=== PATIENT | male | born 1960 | race Hispanic/Latino ===

== ENCOUNTER 2021-02-02 14:33 | Emergency (ER) | payer BC ==
[~2021-02-02 14:33] MED LIST: Iopamidol-370 76% 500 ML 1 ML ONE
[2021-02-02 15:39] LABS: #Lymphocytes 1.2 thou/uL (1.20-3.40); #Monocytes 1.3 thou/uL (0.11-0.59); #Neutrophils 10.3 thou/uL (1.40-6.50); %Eosinophils 0.3 % (0.0-10.0); %Monocytes 9.8 % (0.0-10.0); %Neutrophils 80.8 % (42.0-75.0); Mean Corpuscular Hemoglobin 30.3 pg (27.0-31.0); Mean Corpuscular Volume 86.5 fL (78.0-98.0); Mean Platelet Volume 6.8 fL (7.4-10.4); Platelet Count 223 thou/uL (130-400); RBC Distribution Width 11.6 % (11.5-14.5); Red Blood Cell (RBC) Count 5.63 mill/uL (4.70-6.10); White Blood Cell (WBC) Count 12.7 thou/uL (4.8-10.8)
[2021-02-02] MEDS ORDERED: Lidocaine Viscous Sol 2% 15 ml UD Cup ONE (16:02)
[2021-02-02] MEDS ORDERED: Aspirin Chewable 81 MG TAB ONE ×2 (16:02)
[2021-02-02] MEDS ORDERED: Mag-Al 1200 mg/1200 mg/30 ML UDCUP ONE (16:02)
[2021-02-02 16:06] LABS: ALT (SGPT) 27 U/L (8-55); AST (SGOT) 25 U/L (5-34); Albumin 4.6 g/dL (3.5-5.0); Alkaline Phosphatase 102 U/L (40-110); Anion Gap 16 mmol/L (10-20); BUN (Urea Nitrogen) 25 mg/dL (8.4-25.7); Bilirubin, Total 0.6 mg/dL (0.2-1.2); CK (CPK) 112 U/L (30-200); Calc. Creatinine Clearance 0 mL/min (70-130); Calcium 10.2 mg/dL (7.8-10.44); Carbon Dioxide 24 mmol/L (22-29); Chloride 100 mmol/L (98-107); Globulin 3.3 g/dL (2.4-3.5); Glucose 129 mg/dL (70-105); Lipase 34 U/L (8-78); Potassium 4.8 mmol/L (3.5-5.1); Protein, Total 7.9 g/dL (6.0-8.3); Sodium 135 mmol/L (136-145)
== END 2021-02-02 17:56 | disposition home or self-care (01) ==
LOC: ERS 14:33
DX: K21.9 Gastro-esophageal reflux disease without esophagitis (principal); R42 Dizziness and giddiness; I10 Essential (primary) hypertension; E11.9 Type 2 diabetes mellitus without complications; E78.00 Pure hypercholesterolemia, unspecified; Z79.899 Other long term (current) drug therapy; Z79.84 Long term (current) use of oral hypoglycemic drugs
CPT/HCPCS: 36415; 71045; 71275; 74177; 80053; 82550; 83605; 83690; 84484; 85025; 85379; 93005; Q9967

== ENCOUNTER 2021-03-18 08:45 | Inpatient (IN) | payer BC ==
[2021-03-18 14:09] LABS: Hemoglobin 15.5 g/dL (13.5-17.5); Mean Corpuscular HGB CONC 32.6 g/dL (32.0-36.0); Mean Corpuscular Hemoglobin 28.5 pg (27.0-33.0); Mean Corpuscular Volume 87.5 fl (81.2-95.1); Mean Platelet Volume 9.9 fl (7.4-10.4); Platelet Count 233 10x3/uL (150-450); Red Blood Cell (RBC) Count 5.43 10x6/uL (4.32-5.72); White Blood Cell (WBC) Count 7.9 10x3/uL (3.5-10.5)
[2021-03-18 14:13] LABS: Anion Gap 13 mmol/L (10-20); BUN (Urea Nitrogen) 11 mg/dL (8.4-25.7); Calc. Creatinine Clearance 0 mL/min (70-130); Calcium 10.3 mg/dL (7.8-10.44); Carbon Dioxide 26 mmol/L (22-29); Chloride 103 mmol/L (98-107); Glucose 105 mg/dL (70-105); Potassium 4.5 mmol/L (3.5-5.1); Sodium 137 mmol/L (136-145)
[2021-03-19 18:41] LABS: SARS-CoV-2 PCR by NAA Not Detected (NotDetected)
[2021-03-21] MEDS ORDERED: Bupivacaine PF 0.5% 30 ML VIAL ONE (08:06)
[2021-03-21] MEDS ORDERED: EPINEPHrine 1 MG/ML AMP ONE (08:06)
[2021-03-21] MEDS ORDERED: Albumin 5% 500 ML ONE (08:06)
[2021-03-21] MEDS ORDERED: Dexamethasone 4 mg/ml Vial ONE (08:06)
[2021-03-21] MEDS ORDERED: ceFAZolin 2 GM/DEX 5% 100 ML BAG ONE (09:01)
[2021-03-21] MEDS ORDERED: Fentanyl 250 MCG/5 ML VIAL ONE (09:06)
[2021-03-21] MEDS ORDERED: Midazolam HCl 5 mg/5 ml Vial ONE (09:06)
[2021-03-21] MEDS ORDERED: Heparin 10,000 UNITS/1 ML VIAL 30,000 UNITS in Sodium Chloride 0.9% 1,000 ML FS SCH (09:15)
[2021-03-21] MEDS ORDERED: Sodium Chloride 0.9% 30 ML ONE (09:21)
[2021-03-21] MEDS ORDERED: Famotidine/PF 20 mg/2ml Vial ONE (09:47)
[2021-03-21] MEDS ORDERED: PHENYLEPHRINE-NS 100 MCG/ML 10 ML SYRINGE ONE ×3 (10:06→12:35)
[2021-03-21] MEDS ORDERED: Ondansetron PF 4 MG/2 ML Vial ONE (10:54)
[2021-03-21] MEDS ORDERED: Lidocaine 1% PF 5 ML VIAL ONE (10:54)
[2021-03-21] MEDS ORDERED: Thrombin 5000 UNITS/5 ML VIAL ONE (10:54)
[2021-03-21] MEDS ORDERED: Lidocaine 2% PF 100 mg/5 ml Syringe ONE (10:54)
[2021-03-21] MEDS ORDERED: Dexamethasone 20 MG/5 ML VIAL ONE (10:54)
[2021-03-21] MEDS ORDERED: Rocuronium Bromide 10 MG/ML (10ML VIAL) ONE (10:54)
[2021-03-21] MEDS ORDERED: Heparin 5,000 UNITS/ML VIAL ONE (10:54)
[2021-03-21] MEDS ORDERED: Mannitol 12.5 GM/50 ML ONE (10:54)
[2021-03-21] MEDS ORDERED: Magnesium Sulfate 1 GM/2 ML VIAL ONE (10:54)
[2021-03-21] MEDS ORDERED: Metoprolol Tartrate 5 MG/5 ML VIAL ONE (10:54)
[2021-03-21] MEDS ORDERED: Cardioplegic Soln 1,000 ML BAG ONE (10:54)
[2021-03-21] MEDS ORDERED: Sodium Bicarb 50 MEQ/50 ML Abboject 8.4% SYRINGE ONE (10:54)
[2021-03-21] MEDS ORDERED: Calcium Chloride 1 GM/10 ML Abboject SYRINGE ONE (10:54)
[2021-03-21] MEDS ORDERED: Aminocaproic Acid 5 GM/20 ML VIAL ONE (10:54)
[2021-03-21] MEDS ORDERED: ePHEDrine 50 MG/ML VIAL ONE (10:54)
[2021-03-21] MEDS ORDERED: Protamine Sulfate 250 MG/25 ML VIAL ONE (10:54)
[2021-03-21] MEDS ORDERED: Heparin 30,000 units/30 ml VIAL ONE (10:54)
[2021-03-21] MEDS ORDERED: Potassium Chloride 60 MEQ/30 ML VIAL ONE (10:54)
[2021-03-21] MEDS ORDERED: Esmolol 100 MG/10 ML VIAL ONE (10:54)
[2021-03-21] MEDS ORDERED: Papaverine 60 MG/2 ML VIAL ONE (10:54)
[2021-03-21] MEDS ORDERED: PROPOFOL 200 MG/20 ML VIAL ONE (10:54)
[2021-03-21 14:53] LABS: Actual Bicarbonate (HCO3a) 19.9 mEq/L (22-28); Base Excess (BEa) -6.5 mEq/L (-2.0 to +3.0); CO2 Tension 42.5 mmHg (35.0-45.0); Hemoglobin (Hb) 14.3 g/dL (14.0-18.0); O2 Tension (PaO2), arterial 160.4 mmHg (> 80.0); Potassium - ABG Lab 4.51 mmol/L (3.70-5.30); pH, Arterial 7.29 (7.35-7.45)
[2021-03-21 14:54] LABS: Puncture Site Arterial Line
[2021-03-21 14:59] LABS: ALV-art Gradient 142.975 mmHg (0-20)
[2021-03-21] MEDS ORDERED: Mag-Al 1200 mg/1200 mg/30 ML UDCUP PO PRN (15:05)
[2021-03-21] MEDS ORDERED: Acetaminophen 325 MG TAB PO PRN (15:05)
[2021-03-21] MEDS ORDERED: hydrALAZINE 20 MG/ML VIAL SLOW IVP PRN (15:05)
[2021-03-21] MEDS ORDERED: Morphine 2 MG/ML VIAL SLOW IVP PRN (15:05)
[2021-03-21] MEDS ORDERED: D5 1/2 NS w/20 mEq KCL 1,000 ML IV SCH (15:05)
[2021-03-21] MEDS ORDERED: Post-Op Insulin Drip Protocol IVPB ONE (15:05)
[2021-03-21] MEDS ORDERED: Nitroglycerin 50 MG/250 ML BOT 250 ML IVPB PRN (15:05)
[2021-03-21] MEDS ORDERED: Potassium Chloride 20 MEQ/100 ML PREMIX BAG IVPB PRN (15:05)
[2021-03-21] MEDS ORDERED: traMADol HCl 50 MG TAB PO PRN ×2 (15:05)
[2021-03-21] MEDS ORDERED: Guaifenesin DM 100-10/5 ML UDCUP PO PRN (15:05)
[2021-03-21] MEDS ORDERED: Promethazine HCl 25 MG/ML VIAL IM PRN (15:05)
[2021-03-21] MEDS ORDERED: Ondansetron PF 4 MG/2 ML Vial IVP PRN (15:05)
[2021-03-21] MEDS ORDERED: Norepinephrine 8 MG/0.9% NS 250 ML IVPB PRN (15:05)
[2021-03-21] MEDS ORDERED: Bisacodyl 5 MG TAB PO PRN (15:05)
[2021-03-21] MEDS ORDERED: Bisacodyl 10 MG SUPP PR PRN (15:05)
[2021-03-21] MEDS ORDERED: Magnesium 2 GM/50 ML 2 GM in Premix Bag 1 BAG IVPB SCH (15:05)
[2021-03-21] MEDS ORDERED: Fentanyl 100 MCG/2 ML VIAL SLOW IVP PRN ×2 (15:05)
[2021-03-21] MEDS ORDERED: Insulin Regular 300 UNITS/3 ML VIAL SC PRN (15:15)
[2021-03-21] MEDS ORDERED: HUMULIN R 100 UNITS in Sodium Chloride 0.9% 100 ML IVPB SCH (15:15)
[2021-03-21] MEDS ORDERED: Dextrose 5% in Water 1,000 ML IV PRN (15:15)
[2021-03-21] MEDS ORDERED: Dextrose 50% Abboject 50 ML SYRINGE SLOW IVP PRN (15:15)
[2021-03-21] MEDS: ceFAZolin Sodium/D5W 2 GM in Premix Bag 1 BAG IVPB SCH (15:23)
[2021-03-21 15:31] LABS: Hemoglobin 14.2 g/dL (14.0-18.0); Mean Corpuscular HGB CONC 33.8 g/dL (32.0-36.0); Mean Corpuscular Hemoglobin 30.2 pg (27.0-31.0); Mean Corpuscular Volume 89.1 fL (78.0-98.0); Mean Platelet Volume 7.2 fL (7.4-10.4); Platelet Count 155 thou/uL (130-400); RBC Distribution Width 12.1 % (11.5-14.5); White Blood Cell (WBC) Count 22.1 thou/uL (4.8-10.8)
[2021-03-21 15:35] LABS: INR-International Normal Ratio 1.3; Prothrombin Time 16.6 sec (12.0-14.7)
[2021-03-21 15:36] LABS: PTT 33.9 sec (22.9-36.1)
[2021-03-21 15:43] LABS: Band 9 % (5-11); Eosinophils 2 % (0-10); Lymphocytes 14 % (21-51); MDiff Complete? YES; Monocytes 3 % (0-10); Neutrophil 72 % (42-75); Platelet Morphology Comment Appears Adequate; RBC Morphology Normal
[2021-03-21 15:46] LABS: Anion Gap 13 mmol/L (10-20); BUN (Urea Nitrogen) 11 mg/dL (8.4-25.7); Calc. Creatinine Clearance 135 mL/min (70-130); Calcium 7.7 mg/dL (7.8-10.44); Carbon Dioxide 21 mmol/L (22-29); Chloride 111 mmol/L (98-107); Glucose 187 mg/dL (70-105); Potassium 4.8 mmol/L (3.5-5.1); Sodium 140 mmol/L (136-145)
[2021-03-21 15:52] VITALS: BMI 30.4
[2021-03-21] MEDS: Ketorolac Tromethamine 30 MG/ML VIAL IVP SCH ×2 (17:13→23:37)
[2021-03-21] MEDS ORDERED: Famotidine/PF 20 mg/2ml Vial SLOW IVP SCH (21:00)
[2021-03-21 21:42] LABS: Hemoglobin 12.9 g/dL (14.0-18.0)
[2021-03-21] MEDS: Atorvastatin Calcium 40 MG TAB PO SCH (21:51)
[2021-03-21 22:01] LABS: Potassium 4.2 mmol/L (3.5-5.1)
[2021-03-21] MEDS: Hetastarch 6% 500 ML 500 ML IVPB PRN (23:37)
[2021-03-22] MEDS: ceFAZolin Sodium/D5W 2 GM in Premix Bag 1 BAG IVPB SCH ×2 (01:04→08:27)
[2021-03-22 04:04] LABS: #Lymphocytes 0.4 thou/uL (1.20-3.40); #Monocytes 1.2 thou/uL (0.11-0.59); #Neutrophils 17.2 thou/uL (1.40-6.50); %Eosinophils 0.1 % (0.0-10.0); %Lymphocytes 2.3 % (21.0-51.0); %Monocytes 6.1 % (0.0-10.0); %Neutrophils 91.6 % (42.0-75.0); Hemoglobin 11.2 g/dL (14.0-18.0); Mean Corpuscular HGB CONC 32.9 g/dL (32.0-36.0); Mean Corpuscular Hemoglobin 29.1 pg (27.0-31.0); Mean Corpuscular Volume 88.7 fL (78.0-98.0); Platelet Count 142 thou/uL (130-400); RBC Distribution Width 11.9 % (11.5-14.5); Red Blood Cell (RBC) Count 3.83 mill/uL (4.70-6.10); White Blood Cell (WBC) Count 18.7 thou/uL (4.8-10.8)
[2021-03-22 04:30] LABS: Anion Gap 9 mmol/L (10-20); BUN (Urea Nitrogen) 11 mg/dL (8.4-25.7); Calc. Creatinine Clearance 130 mL/min (70-130); Calcium 7.7 mg/dL (7.8-10.44); Carbon Dioxide 23 mmol/L (22-29); Chloride 109 mmol/L (98-107); Glucose 132 mg/dL (70-105); Potassium 4.2 mmol/L (3.5-5.1); Sodium 137 mmol/L (136-145)
[2021-03-22] MEDS: Ketorolac Tromethamine 30 MG/ML VIAL IVP SCH ×3 (05:30→19:52)
[2021-03-22] MEDS ORDERED: HumaLOG 300 UNITS/3 ML VIAL SC PRN (07:09)
[2021-03-22] MEDS ORDERED: Dextrose 50% Abboject 50 ML SYRINGE SLOW IVP PRN (07:09)
[2021-03-22] MEDS ORDERED: Dextrose 5% in Water 1,000 ML IV PRN (07:09)
[2021-03-22] MEDS: Hetastarch 6% 500 ML 500 ML IVPB PRN (08:05)
[2021-03-22] MEDS: Magnesium 2 GM/50 ML 2 GM in Premix Bag 1 BAG IVPB SCH (08:11)
[2021-03-22] MEDS: Aspirin 325 MG TAB PO SCH (08:26)
[2021-03-22] MEDS: Fish Oil 1,000 MG CAP PO SCH (08:26)
[2021-03-22] MEDS ORDERED: Ketorolac Tromethamine 30 MG/ML VIAL ONE (15:19)
[2021-03-22] MEDS: Atorvastatin Calcium 40 MG TAB PO SCH (21:27)
[2021-03-23] MEDS: Ketorolac Tromethamine 30 MG/ML VIAL IVP SCH ×5 (05:39→23:19)
[2021-03-23] MEDS: Aspirin 325 MG TAB PO SCH (08:38)
[2021-03-23] MEDS: Fish Oil 1,000 MG CAP PO SCH (08:38)
[2021-03-23] MEDS: Magnesium 2 GM/50 ML 2 GM in Premix Bag 1 BAG IVPB SCH (08:38)
[2021-03-23] MEDS ORDERED: Mag-Al 1200 mg/1200 mg/30 ML UDCUP PO PRN (16:30)
[2021-03-23] MEDS ORDERED: Bisacodyl 10 MG SUPP PR PRN (16:30)
[2021-03-23] MEDS ORDERED: diphenhydrAMINE 25 MG CAP PO PRN (16:30)
[2021-03-23] MEDS ORDERED: Guaifenesin DM 100-10/5 ML UDCUP PO PRN (16:30)
[2021-03-23] MEDS ORDERED: Zolpidem Tartrate 5 MG TAB PO PRN (16:30)
[2021-03-23] MEDS ORDERED: Milk Of Magnesia 30 ML UDCUP PO PRN (16:30)
[2021-03-23] MEDS ORDERED: Nitroglycerin 0.4 MG TAB (25 Tab Bottle) SL PRN (16:30)
[2021-03-23] MEDS ORDERED: Bisacodyl 5 MG TAB PO PRN (16:30)
[2021-03-23] MEDS ORDERED: Mineral Oil ENEMA PR PRN (16:30)
[2021-03-23] MEDS ORDERED: Dextrose 5% in Water 1,000 ML IV PRN (16:45)
[2021-03-23] MEDS ORDERED: Insulin Regular 300 UNITS/3 ML VIAL SC PRN (16:45)
[2021-03-23] MEDS ORDERED: Dextrose 50% Abboject 50 ML SYRINGE SLOW IVP PRN (16:45)
[2021-03-23] MEDS: Atorvastatin Calcium 40 MG TAB PO SCH (20:24)
[2021-03-24] MEDS: Ketorolac Tromethamine 30 MG/ML VIAL IVP SCH ×3 (05:17→18:04)
[2021-03-24] MEDS: Aspirin 325 MG TAB PO SCH (09:12)
[2021-03-24] MEDS: Fish Oil 1,000 MG CAP PO SCH (09:12)
[2021-03-24] MEDS: Atorvastatin Calcium 40 MG TAB PO SCH (21:10)
[2021-03-25 07:55] VITALS: BP 125/76; TEMP 98.8
[2021-03-25] MEDS: Fish Oil 1,000 MG CAP PO SCH (08:42)
[2021-03-25] MEDS: Aspirin 325 MG TAB PO SCH (08:42)
== END 2021-03-25 10:00 | disposition home or self-care (01) | DRG 236 ==
LOC: SURG A 03-21 06:02 → CCU 03-21 13:43 → 2NO 03-23 17:27
PROVIDERS: ADMIT Thoracic Surgery (Cardiothoracic Vascular Surgery); ATTEND Thoracic Surgery (Cardiothoracic Vascular Surgery)
PROC: 0212093 Bypass Coronary Artery, Three Arteries from Coronary Artery with Autologous Venous Tissue, Open Approach (ICD-10-PCS; principal; 2021-03-21)
PROC: 06BQ4ZZ Excision of Left Saphenous Vein, Percutaneous Endoscopic Approach (ICD-10-PCS; 2021-03-21)
PROC: 06BP4ZZ Excision of Right Saphenous Vein, Percutaneous Endoscopic Approach (ICD-10-PCS; 2021-03-21)
PROC: 5A1221Z Performance of Cardiac Output, Continuous (ICD-10-PCS; 2021-03-21)
DX: I25.119 Atherosclerotic heart disease of native coronary artery with unspecified angina pectoris (principal); Z20.822 Contact with and (suspected) exposure to COVID-19; I10 Essential (primary) hypertension; K21.9 Gastro-esophageal reflux disease without esophagitis; E78.2 Mixed hyperlipidemia; M19.90 Unspecified osteoarthritis, unspecified site; Z79.82 Long term (current) use of aspirin; Z79.84 Long term (current) use of oral hypoglycemic drugs; Z79.899 Other long term (current) drug therapy
CPT/HCPCS: 36416; 36430; 71045; 71046; 80048; 82805; 82947; 85025; 85027; 85610; 85730; 86850; 86900; 86901; 93005; 93010; 93798; 94002; 94150; J0171; J1100; J1642; J1644; J1815; J1885; J2001; J2150; J2250; J2405; J2440; J2704; J2720; J3010; J3370; J3475; J3480; J3490; P9045; S0017; S0020; S0028; U0003; U0005

== ENCOUNTER 2021-03-18 11:38 | Outpatient (CLI) | payer BC | END 2021-03-18 11:39 | disposition home or self-care (01) | LOC: LABBT 11:38 | PROVIDERS: ATTEND Thoracic Surgery (Cardiothoracic Vascular Surgery) | DX: Z01.818 Encounter for other preprocedural examination (principal); I25.10 Atherosclerotic heart disease of native coronary artery without angina pectoris | CPT/HCPCS: 71046; 80048; 85027; 86850; 86900; 86901; 93005; 93010; U0003; U0005 ==

== ENCOUNTER 2021-04-01 15:00 | Inpatient (IN) | payer BC ==
[2021-04-01 15:15] VITALS: BMI 33.3
[2021-04-01] MEDS ORDERED: FLU VACC QS2021-22(6MOS UP)/PF 60 MCG/0.5 ML SYRINGE IM ONE (15:30)
[2021-04-01] MEDS ORDERED: Ondansetron ODT 4 MG TAB PO PRN (16:27)
[2021-04-01] MEDS ORDERED: Ondansetron PF 4 MG/2 ML Vial IVP PRN (16:27)
[2021-04-01] MEDS ORDERED: Acetaminophen 650 MG Suppository PR PRN (16:27)
[2021-04-01] MEDS ORDERED: Acetaminophen 325 MG TAB PO PRN (16:27)
[2021-04-01 16:43] LABS: Lactic Acid 2.3 mmol/L (0.5-2.2)
[2021-04-01 16:44] LABS: Magnesium 2.2 mg/dL (1.6-2.6)
[2021-04-01 17:04] LABS: HBCM Index 0.06 S/CO (0-0.79); HBSAg Index 0.22 S/CO (0-0.99); Hep A IgM AB Non-Reactive (NonReactive); Hep A IgM S/CO 0.15 S/CO (0-0.79); Hep B Surf Ag Non-Reactive S/CO (NonReactive); Hep C IgG Ab Non-Reactive (NonReactive); Hep C Index 0.28 S/CO (0-0.79); Hepatitis B Core IgM Abs Non-Reactive (NonReactive)
[2021-04-01] MEDS ORDERED: Dextrose 5% in Water 1,000 ML IV PRN (18:28)
[2021-04-01] MEDS ORDERED: Insulin Regular 300 UNITS/3 ML VIAL SC PRN ×2 (18:28)
[2021-04-01] MEDS ORDERED: Dextrose 50% Abboject 50 ML SYRINGE SLOW IVP PRN (18:28)
[2021-04-01 20:12] LABS: Acetaminophen Less than 6.0 mcg/mL (10.0-30.0); Alcohol Less than 10 mg/dL (Less than 10); Salicylate Less than 8.0 mg/dL (15.0-30.0)
[2021-04-01] MEDS ORDERED: Furosemide 40 MG/4 ML VIAL SLOW IVP SCH (23:00)
[2021-04-01] MEDS ORDERED: Docusate 100 MG CAP PO PRN (23:22)
[2021-04-01] MEDS ORDERED: Atorvastatin Calcium 40 MG TAB PO SCH (23:30)
[2021-04-02 00:22] LABS: Bacteria/HPF None Seen HPF (None Seen); Bilirubin Negative (Negative); Blood, Urine Negative (Negative); Clarity Clear (Clear); Glucose, Urine (Dipstick) Normal (Negative); Ketone, Urine Negative (Negative); Leukocyte Negative Leu/uL (Negative); Mucous/LPF 2+ LPF (<2+); Nitrite Negative (Negative); Protein, Urine (Dipstick) 20 mg/dL (Neg-Trace); RBC/HPF 0-3 HPF (0-3); Specific Gravity, Urine 1.028 (1.002-1.036); Squamous Epithelial None Seen HPF (0-3); Urobilinogen 6 mg/dL (Less than 2); WBC/HPF 0-3 HPF (0-3); pH, Urine 5.5 (5.0-9.0)
[2021-04-02 00:24] LABS: Urine Culture Reflex No No
[2021-04-02 05:07] LABS: ALT (SGPT) 808 U/L (8-55); AST (SGOT) 888 U/L (5-34); Albumin 3.5 g/dL (3.5-5.0); Alkaline Phosphatase 223 U/L (40-110); Anion Gap 12 mmol/L (10-20); BUN (Urea Nitrogen) 18 mg/dL (8.4-25.7); Calc. Creatinine Clearance 115 mL/min (70-130); Calcium 8.4 mg/dL (7.8-10.44); Carbon Dioxide 26 mmol/L (22-29); Chloride 100 mmol/L (98-107); Globulin 2.4 g/dL (2.4-3.5); Glucose 123 mg/dL (70-105); Potassium 4.1 mmol/L (3.5-5.1); Protein, Total 5.9 g/dL (6.0-8.3); Sodium 134 mmol/L (136-145)
[2021-04-02 05:17] LABS: Band 4 % (5-11); Hemoglobin 9.5 g/dL (14.0-18.0); Lymphocytes 8 % (21-51); MDiff Complete? YES; Mean Corpuscular HGB CONC 33.7 g/dL (32.0-36.0); Mean Corpuscular Hemoglobin 30.8 pg (27.0-31.0); Mean Corpuscular Volume 91.4 fL (78.0-98.0); Mean Platelet Volume 7.1 fL (7.4-10.4); Monocytes 1 % (0-10); Myelocyte 2 % (0-0); Neutrophil 85 % (42-75); Platelet Count 277 thou/uL (130-400); Platelet Morphology Comment Appears Adequate; RBC Distribution Width 12.7 % (11.5-14.5)
[2021-04-02] MEDS ORDERED: Vancomycin 1 GM in Premix Bag 1 BAG IVPB SCH (08:15)
[2021-04-02 08:30] LABS: MONO NEGATIVE CONTROL ZONE White (Negative) (White); MONO POSITIVE CONTROL Pink Line (Positive) (PINK/RED); Mononucleosis NEGATIVE (NEGATIVE)
[2021-04-02 08:34] LABS: Bilirubin, Direct 1.1 mg/dL (0.1-0.3); Bilirubin, Total 1.9 mg/dL (0.2-1.2)
[2021-04-02 08:54] LABS: HIV (1/2) Antibody/Antigen Non-Reactive (NonReactive); HIV 1/2 INDEX 0.09 S/CO (<1.00)
[2021-04-02 08:57] LABS: INR-International Normal Ratio 1.8; Prothrombin Time 20.7 sec (12.0-14.7)
[2021-04-02 08:58] LABS: PTT 39.7 sec (22.9-36.1)
[2021-04-02 08:59] LABS: Lactic Acid 1.4 mmol/L (0.5-2.2)
[2021-04-02] MEDS ORDERED: Furosemide 20 MG/2 ML VIAL SLOW IVP SCH (09:00)
[2021-04-02] MEDS ORDERED: Cefepime 2 GM in Sodium Chloride 0.9% 100 ML IVPB SCH (09:00)
[2021-04-02] MEDS: Aspirin 81 mg Enteric Coated Tablet PO SCH (09:59)
[2021-04-02] MEDS: Fish Oil 1,000 MG CAP PO SCH (09:59)
[2021-04-02] MEDS ORDERED: Iopamidol-370 76% 500 ML 1 ML ONE (10:16)
[2021-04-02] MEDS ORDERED: Colchicine 0.6 MG TAB PO SCH (17:30)
[2021-04-02] MEDS ORDERED: Atorvastatin Calcium 40 MG TAB PO SCH (21:00)
[2021-04-02] MEDS: Colchicine 0.3 MG TAB PO SCH (21:57)
[2021-04-03 05:04] LABS: #Eosinphils 0.3 thou/uL (0.0-0.7); #Lymphocytes 1.2 thou/uL (1.20-3.40); #Monocytes 0.8 thou/uL (0.11-0.59); %Basophils 0.1 % (0.0-1.0); %Eosinophils 2.6 % (0.0-10.0); %Lymphocytes 10.7 % (21.0-51.0); %Monocytes 7.3 % (0.0-10.0); %Neutrophils 79.3 % (42.0-75.0); Hemoglobin 9.3 g/dL (14.0-18.0); Mean Corpuscular HGB CONC 31.6 g/dL (32.0-36.0); Mean Corpuscular Hemoglobin 28.8 pg (27.0-31.0); Mean Platelet Volume 7.1 fL (7.4-10.4); Platelet Count 261 thou/uL (130-400); Red Blood Cell (RBC) Count 3.23 mill/uL (4.70-6.10); White Blood Cell (WBC) Count 11.3 thou/uL (4.8-10.8)
[2021-04-03 05:11] LABS: INR-International Normal Ratio 1.5; Prothrombin Time 18.7 sec (12.0-14.7)
[2021-04-03 05:19] LABS: ALT (SGPT) 500 U/L (8-55); AST (SGOT) 210 U/L (5-34); Albumin 3.1 g/dL (3.5-5.0); Alkaline Phosphatase 186 U/L (40-110); Anion Gap 14 mmol/L (10-20); BUN (Urea Nitrogen) 15 mg/dL (8.4-25.7); Bilirubin, Total 1.5 mg/dL (0.2-1.2); Calc. Creatinine Clearance 142 mL/min (70-130); Calcium 7.7 mg/dL (7.8-10.44); Carbon Dioxide 24 mmol/L (22-29); Chloride 100 mmol/L (98-107); Globulin 2.3 g/dL (2.4-3.5); Glucose 109 mg/dL (70-105); Potassium 3.7 mmol/L (3.5-5.1); Protein, Total 5.4 g/dL (6.0-8.3); Sodium 134 mmol/L (136-145)
[2021-04-03] MEDS ORDERED: CEFAZOLIN 2 GM in Premix Bag 1 BAG IVPB SCH (07:00)
[2021-04-03] MEDS ORDERED: ceFAZolin 2 GM/DEX 5% 100 ML BAG ONE (09:12)
[2021-04-03] MEDS ORDERED: PROPOFOL 200 MG/20 ML VIAL ONE (09:46)
[2021-04-03] MEDS ORDERED: PHENYLEPHRINE-NS 100 MCG/ML 10 ML SYRINGE ONE (09:46)
[2021-04-03] MEDS ORDERED: Rocuronium Bromide 10 MG/ML (10ML VIAL) ONE (09:46)
[2021-04-03] MEDS ORDERED: Ondansetron PF 4 MG/2 ML Vial ONE (09:46)
[2021-04-03] MEDS ORDERED: Lidocaine 1% PF 5 ML VIAL ONE (09:46)
[2021-04-03] MEDS ORDERED: Dexamethasone 20 MG/5 ML VIAL ONE (09:46)
[2021-04-03] MEDS ORDERED: Esmolol 100 MG/10 ML VIAL ONE (09:46)
[2021-04-03] MEDS ORDERED: Glycopyrrolate 0.2 MG/ML 5 ML SYRINGE ONE (09:46)
[2021-04-03] MEDS ORDERED: ePHEDrine 50 MG/ML VIAL ONE (09:46)
[2021-04-03] MEDS ORDERED: Ketamine 50 MG/ML (10ML VIAL) ONE (09:46)
[2021-04-03] MEDS ORDERED: SUGAMMADEX SODIUM 200 MG/2 ML VIAL ONE (09:48)
[2021-04-03] MEDS ORDERED: Meperidine HCl/PF 25 MG/ML VIAL SLOW IVP PRN (10:33)
[2021-04-03] MEDS ORDERED: Promethazine HCl 25 MG/ML VIAL IM PRN (10:33)
[2021-04-03] MEDS ORDERED: Promethazine HCl 25 MG/ML VIAL IVPB PRN (10:33)
[2021-04-03] MEDS ORDERED: Ondansetron HCl/PF 4 MG/2 ML Vial IVP PRN (10:33)
[2021-04-03] MEDS ORDERED: HYDROmorphone 2 MG/ML VIAL SLOW IVP PRN (10:33)
[2021-04-03] MEDS ORDERED: Fentanyl 100 MCG/2 ML VIAL ONE ×2 (11:20→11:48)
[2021-04-03] MEDS ORDERED: Fentanyl 100 MCG/2 ML VIAL SLOW IVP PRN (11:22)
[2021-04-03] MEDS: Furosemide 40 MG/4 ML VIAL SLOW IVP SCH (13:56)
[2021-04-03] MEDS: Aspirin 81 mg Enteric Coated Tablet PO SCH (13:56)
[2021-04-03] MEDS: Colchicine 0.3 MG TAB PO SCH ×2 (13:56→20:55)
[2021-04-03] MEDS: Fish Oil 1,000 MG CAP PO SCH (13:56)
[2021-04-03] MEDS: HYDROcodone/Acetaminophen 5/325 mg Tablet PO PRN (20:54)
[2021-04-04 05:23] LABS: #Lymphocytes 0.6 thou/uL (1.20-3.40); #Neutrophils 11.8 thou/uL (1.40-6.50); %Eosinophils 0.2 % (0.0-10.0); %Lymphocytes 4.4 % (21.0-51.0); %Monocytes 7.1 % (0.0-10.0); %Neutrophils 88.3 % (42.0-75.0); Mean Corpuscular HGB CONC 31.5 g/dL (32.0-36.0); Mean Corpuscular Hemoglobin 28.7 pg (27.0-31.0); Mean Corpuscular Volume 91.1 fL (78.0-98.0); Mean Platelet Volume 7.1 fL (7.4-10.4); Platelet Count 302 thou/uL (130-400); RBC Distribution Width 13.1 % (11.5-14.5); Red Blood Cell (RBC) Count 3.48 mill/uL (4.70-6.10); White Blood Cell (WBC) Count 13.4 thou/uL (4.8-10.8)
[2021-04-04 05:26] LABS: INR-International Normal Ratio 1.3; Prothrombin Time 16.8 sec (12.0-14.7)
[2021-04-04 05:44] LABS: ALT (SGPT) 379 U/L (8-55); AST (SGOT) 122 U/L (5-34); Albumin 3.2 g/dL (3.5-5.0); Alkaline Phosphatase 167 U/L (40-110); Anion Gap 12 mmol/L (10-20); BUN (Urea Nitrogen) 13 mg/dL (8.4-25.7); Bilirubin, Total 1.2 mg/dL (0.2-1.2); Calc. Creatinine Clearance 140 mL/min (70-130); Calcium 8.2 mg/dL (7.8-10.44); Carbon Dioxide 28 mmol/L (22-29); Chloride 99 mmol/L (98-107); Globulin 2.4 g/dL (2.4-3.5); Glucose 133 mg/dL (70-105); Potassium 4.5 mmol/L (3.5-5.1); Protein, Total 5.6 g/dL (6.0-8.3); Sodium 134 mmol/L (136-145)
[2021-04-04] MEDS: Fish Oil 1,000 MG CAP PO SCH (08:23)
[2021-04-04] MEDS: Aspirin 81 mg Enteric Coated Tablet PO SCH (08:23)
[2021-04-04] MEDS: Polyethylene Glycol 3350 17 GM Packet PO SCH (08:24)
[2021-04-04] MEDS: Furosemide 40 MG/4 ML VIAL SLOW IVP SCH (08:24)
[2021-04-04 13:38] LABS: HIV-1 Quantitative, RNA PCR <20 copies/mL (.)
[2021-04-04] MEDS: cefTRIAXone\\ROCEPHIN 1 GM in Sodium Chloride 0.9% 100 ML IVPB SCH (16:57)
[2021-04-05 04:57] LABS: #Eosinphils 0.2 thou/uL (0.0-0.7); #Lymphocytes 1.5 thou/uL (1.20-3.40); #Neutrophils 7.1 thou/uL (1.40-6.50); %Basophils 0.2 % (0.0-1.0); %Eosinophils 1.8 % (0.0-10.0); %Lymphocytes 14.9 % (21.0-51.0); %Monocytes 9.8 % (0.0-10.0); %Neutrophils 73.4 % (42.0-75.0); Hemoglobin 10.3 g/dL (14.0-18.0); Mean Corpuscular HGB CONC 32.5 g/dL (32.0-36.0); Mean Corpuscular Hemoglobin 29.2 pg (27.0-31.0); Mean Corpuscular Volume 89.9 fL (78.0-98.0); Mean Platelet Volume 6.8 fL (7.4-10.4); Platelet Count 332 thou/uL (130-400); RBC Distribution Width 13.3 % (11.5-14.5); Red Blood Cell (RBC) Count 3.54 mill/uL (4.70-6.10); White Blood Cell (WBC) Count 9.7 thou/uL (4.8-10.8)
[2021-04-05 05:31] LABS: ALT (SGPT) 264 U/L (8-55); AST (SGOT) 67 U/L (5-34); Albumin 3.2 g/dL (3.5-5.0); Alkaline Phosphatase 150 U/L (40-110); Anion Gap 8 mmol/L (10-20); BUN (Urea Nitrogen) 15 mg/dL (8.4-25.7); Bilirubin, Total 0.7 mg/dL (0.2-1.2); Calc. Creatinine Clearance 122 mL/min (70-130); Calcium 8.1 mg/dL (7.8-10.44); Carbon Dioxide 28 mmol/L (22-29); Chloride 102 mmol/L (98-107); Globulin 2.3 g/dL (2.4-3.5); Glucose 101 mg/dL (70-105); Potassium 4.3 mmol/L (3.5-5.1); Protein, Total 5.5 g/dL (6.0-8.3); Sodium 134 mmol/L (136-145)
[2021-04-05] MEDS: Polyethylene Glycol 3350 17 GM Packet PO SCH (09:15)
[2021-04-05] MEDS: Fish Oil 1,000 MG CAP PO SCH (09:15)
[2021-04-05] MEDS: Aspirin 81 mg Enteric Coated Tablet PO SCH (09:15)
[2021-04-05] MEDS: Furosemide 40 MG/4 ML VIAL SLOW IVP SCH (09:16)
[2021-04-05] MEDS: HYDROcodone/Acetaminophen 5/325 mg Tablet PO PRN ×2 (09:22→19:12)
[2021-04-05] MEDS: cefTRIAXone\\ROCEPHIN 1 GM in Sodium Chloride 0.9% 100 ML IVPB SCH (16:24)
[2021-04-05 17:09] LABS: CMV DNA-PCR Test Negative (Negative)
[2021-04-06 05:16] LABS: #Basophils 0.1 thou/uL (0.0-0.2); #Eosinphils 0.3 thou/uL (0.0-0.7); #Lymphocytes 2.3 thou/uL (1.20-3.40); #Monocytes 0.8 thou/uL (0.11-0.59); #Neutrophils 4.1 thou/uL (1.40-6.50); %Basophils 1.1 % (0.0-1.0); %Eosinophils 4.4 % (0.0-10.0); %Lymphocytes 30.2 % (21.0-51.0); %Monocytes 10.3 % (0.0-10.0); %Neutrophils 53.9 % (42.0-75.0); Hemoglobin 10.4 g/dL (14.0-18.0); Mean Corpuscular HGB CONC 32.5 g/dL (32.0-36.0); Mean Corpuscular Hemoglobin 29.3 pg (27.0-31.0); Mean Corpuscular Volume 90.1 fL (78.0-98.0); Mean Platelet Volume 6.7 fL (7.4-10.4); Platelet Count 328 thou/uL (130-400); RBC Distribution Width 13.4 % (11.5-14.5); Red Blood Cell (RBC) Count 3.56 mill/uL (4.70-6.10); White Blood Cell (WBC) Count 7.6 thou/uL (4.8-10.8)
[2021-04-06 05:40] LABS: ALT (SGPT) 195 U/L (8-55); AST (SGOT) 46 U/L (5-34); Albumin 3.2 g/dL (3.5-5.0); Alkaline Phosphatase 156 U/L (40-110); Anion Gap 12 mmol/L (10-20); BUN (Urea Nitrogen) 14 mg/dL (8.4-25.7); Bilirubin, Total 0.6 mg/dL (0.2-1.2); Calc. Creatinine Clearance 125 mL/min (70-130); Calcium 8.4 mg/dL (7.8-10.44); Carbon Dioxide 27 mmol/L (22-29); Chloride 101 mmol/L (98-107); Globulin 2.4 g/dL (2.4-3.5); Glucose 93 mg/dL (70-105); Potassium 4.6 mmol/L (3.5-5.1); Protein, Total 5.6 g/dL (6.0-8.3); Sodium 135 mmol/L (136-145)
[2021-04-06] MEDS ORDERED: Senokot S 8.6-50 MG TAB PO PRN (07:24)
[2021-04-06] MEDS ORDERED: Bisacodyl 5 MG TAB PO PRN (07:24)
[2021-04-06] MEDS ORDERED: Cepastat Lozenges 1 LOZ PO PRN (07:24)
[2021-04-06] MEDS ORDERED: Artificial Tear Sol 15 ML BOT EA EYE PRN (07:24)
[2021-04-06] MEDS ORDERED: Calcium Carbonate 500 MG ChewTAB PO PRN (07:24)
[2021-04-06] MEDS ORDERED: Zolpidem Tartrate 5 MG TAB PO PRN (07:24)
[2021-04-06] MEDS ORDERED: Loperamide HCl 2 MG CAP PO PRN (07:24)
[2021-04-06] MEDS ORDERED: GUAIFENESIN SF SOLN 200 MG/10 ML UDCUP PO PRN (07:24)
[2021-04-06] MEDS ORDERED: hydrALAZINE 20 MG/ML VIAL SLOW IVP PRN (07:24)
[2021-04-06] MEDS ORDERED: Loratadine 10 MG TAB PO PRN (07:24)
[2021-04-06] MEDS ORDERED: Benzonatate 100 MG CAP PO PRN (07:24)
[2021-04-06] MEDS ORDERED: Sodium Chloride 0.65% Nasal 44 ML BOT EA NARE PRN (07:24)
[2021-04-06] MEDS ORDERED: Hydrocerin (Eucerin) Cream 120 gm Jar TOP PRN (07:24)
[2021-04-06] MEDS: Aspirin 81 mg Enteric Coated Tablet PO SCH (08:32)
[2021-04-06] MEDS: Fish Oil 1,000 MG CAP PO SCH (08:33)
[2021-04-06] MEDS: HYDROcodone/Acetaminophen 5/325 mg Tablet PO PRN (08:33)
[2021-04-06] MEDS: Polyethylene Glycol 3350 17 GM Packet PO SCH (08:33)
[2021-04-06] MEDS: Furosemide 40 MG/4 ML VIAL SLOW IVP SCH (08:33)
[2021-04-06] MEDS: cefTRIAXone\\ROCEPHIN 1 GM in Sodium Chloride 0.9% 100 ML IVPB SCH (15:42)
[2021-04-07] MEDS: Furosemide 40 MG/4 ML VIAL SLOW IVP SCH (08:22)
[2021-04-07] MEDS: Fish Oil 1,000 MG CAP PO SCH (08:22)
[2021-04-07] MEDS: Aspirin 81 mg Enteric Coated Tablet PO SCH (08:22)
[2021-04-07] MEDS: Polyethylene Glycol 3350 17 GM Packet PO SCH (08:22)
[2021-04-07] MEDS ORDERED: Diltiazem 125 MG in Sodium Chloride 0.9% 100 ML IVPB SCH (16:30)
[2021-04-07] MEDS: cefTRIAXone\\ROCEPHIN 1 GM in Sodium Chloride 0.9% 100 ML IVPB SCH (16:45)
[2021-04-07] MEDS ORDERED: Digoxin 0.5 MG/2 ML AMP SLOW IVP SCH (17:00)
[2021-04-07] MEDS ORDERED: Amiodarone 200 MG TAB PO SCH (17:00)
[2021-04-07] MEDS: Amiodarone 200 MG TAB PO SCH (20:36)
[2021-04-08 04:38] LABS: #Eosinphils 0.2 thou/uL (0.0-0.7); #Lymphocytes 1.8 thou/uL (1.20-3.40); #Monocytes 0.9 thou/uL (0.11-0.59); #Neutrophils 5.8 thou/uL (1.40-6.50); %Basophils 0.4 % (0.0-1.0); %Eosinophils 2.3 % (0.0-10.0); %Lymphocytes 20.3 % (21.0-51.0); %Monocytes 10.7 % (0.0-10.0); %Neutrophils 66.2 % (42.0-75.0); Hemoglobin 11.7 g/dL (14.0-18.0); Mean Corpuscular Hemoglobin 29.5 pg (27.0-31.0); Mean Corpuscular Volume 89.2 fL (78.0-98.0); Mean Platelet Volume 6.5 fL (7.4-10.4); Platelet Count 324 thou/uL (130-400); RBC Distribution Width 13.8 % (11.5-14.5); Red Blood Cell (RBC) Count 3.99 mill/uL (4.70-6.10); White Blood Cell (WBC) Count 8.8 thou/uL (4.8-10.8)
[2021-04-08 04:57] LABS: ALT (SGPT) 115 U/L (8-55); AST (SGOT) 24 U/L (5-34); Albumin 3.5 g/dL (3.5-5.0); Alkaline Phosphatase 158 U/L (40-110); Anion Gap 11 mmol/L (10-20); BUN (Urea Nitrogen) 14 mg/dL (8.4-25.7); Bilirubin, Total 0.6 mg/dL (0.2-1.2); CRP (Inflammatory) 5.58 mg/dL (= or < 0.5); Calc. Creatinine Clearance 113 mL/min (70-130); Calcium 8.7 mg/dL (7.8-10.44); Carbon Dioxide 26 mmol/L (22-29); Chloride 104 mmol/L (98-107); Globulin 2.6 g/dL (2.4-3.5); Glucose 106 mg/dL (70-105); Magnesium 2.2 mg/dL (1.6-2.6); Potassium 4.6 mmol/L (3.5-5.1); Protein, Total 6.1 g/dL (6.0-8.3); Sodium 136 mmol/L (136-145)
[2021-04-08 04:58] LABS: Phosphorus 3.2 mg/dL (2.3-4.7)
[2021-04-08] MEDS: Amiodarone 200 MG TAB PO SCH ×2 (09:11→19:54)
[2021-04-08] MEDS: Fish Oil 1,000 MG CAP PO SCH (09:11)
[2021-04-08] MEDS: Polyethylene Glycol 3350 17 GM Packet PO SCH (09:12)
[2021-04-08] MEDS: Aspirin 81 mg Enteric Coated Tablet PO SCH (09:12)
[2021-04-08] MEDS: cefTRIAXone\\ROCEPHIN 1 GM in Sodium Chloride 0.9% 100 ML IVPB SCH (15:53)
[2021-04-09] MEDS: Fish Oil 1,000 MG CAP PO SCH (08:43)
[2021-04-09] MEDS: Aspirin 81 mg Enteric Coated Tablet PO SCH (08:43)
[2021-04-09] MEDS: Polyethylene Glycol 3350 17 GM Packet PO SCH (08:43)
[2021-04-09] MEDS: Amiodarone 200 MG TAB PO SCH (08:43)
[2021-04-09 11:30] VITALS: BP 102/56; TEMP 98.2
== END 2021-04-09 11:47 | disposition home or self-care (01) | DRG 271 ==
LOC: UNDOADMIN 15:00 → 2NO 15:00
PROVIDERS: ADMIT Family Medicine; ATTEND Internal Medicine
PROC: 0W9D0ZZ Drainage of Pericardial Cavity, Open Approach (ICD-10-PCS; principal; 2021-04-03)
DX: I97.190 Other postprocedural cardiac functional disturbances following cardiac surgery (principal); I31.3 Pericardial effusion (noninflammatory); J90 Pleural effusion, not elsewhere classified; I48.92 Unspecified atrial flutter; I47.1 Supraventricular tachycardia; I48.0 Paroxysmal atrial fibrillation; Z20.822 Contact with and (suspected) exposure to COVID-19; E78.5 Hyperlipidemia, unspecified; E11.9 Type 2 diabetes mellitus without complications; I25.10 Atherosclerotic heart disease of native coronary artery without angina pectoris; E66.9 Obesity, unspecified; K76.0 Fatty (change of) liver, not elsewhere classified; I08.1 Rheumatic disorders of both mitral and tricuspid valves; K76.89 Other specified diseases of liver; K76.1 Chronic passive congestion of liver; B96.20 Unspecified Escherichia coli [E. coli] as the cause of diseases classified elsewhere; I50.9 Heart failure, unspecified; I11.0 Hypertensive heart disease with heart failure; Y83.8 Other surgical procedures as the cause of abnormal reaction of the patient, or of later complication, without mention of misadventure at the time of the procedure; D72.819 Decreased white blood cell count, unspecified; Z95.1 Presence of aortocoronary bypass graft; Z68.30 Body mass index [BMI] 30.0-30.9, adult; Z79.899 Other long term (current) drug therapy; Z79.82 Long term (current) use of aspirin; Z79.84 Long term (current) use of oral hypoglycemic drugs
CPT/HCPCS: 36415; 36416; 71045; 71046; 74018; 74177; 80053; 80074; 80143; 80307; 81001; 82247; 82390; 82525; 83010; 83516; 83605; 83690; 83735; 83880; 84100; 84484; 85025; 85610; 85730; 86140; 86308; 86850; 86900; 86901; 87070; 87077; 87186; 87205; 87389; 87497; 87536; 93306; J0696; J1100; J1160; J1940; J2405; J2704; J3010; J3490; Q9967